=== PATIENT | female | born 1980 | race Caucasian/White ===

== ENCOUNTER 2018-07-27 14:12 | Emergency (ER) | payer BC ==
[~2018-07-27] VITALS: Ht 180.3 cm; Wt 106.6 kg
[~2018-07-27 14:12] MED LIST: ADIPEX-P37.5 M1 PO; CATAPRES0.1 MG PO; ELMIRON100 MG PO; FLAGYL 500500 MG/100 PO; FLAGYL500 MG PO; IMITREX50 MG PO; LEVAQUIN750 MG PO; MOTRIN600 MG PO; NORCO 10/325 TA1 TA1 PO; PERCOCET 5/3251 TA1 PO; PHENERGAN25 M1 PO; SYNTHROID88 MCG PO; TOPAMAX50 MG PO; ZOFRAN8 MG PO
[2018-07-27 14:40] VITALS: Ht 180.3 cm; Wt 106.6 kg
[2018-07-27] MEDS ORDERED: SKELAXIN800 MG PO ×2 (18:40→18:46)
[2018-07-27 19:07] VITALS: BP 137/83
== END 2018-07-27 19:07 | disposition home or self-care (01) ==
LOC: D.ER 14:12
DX: G44.209 Tension-type headache, unspecified, not intractable (principal); E03.9 Hypothyroidism, unspecified; I10 Essential (primary) hypertension; Z87.448 Personal history of other diseases of urinary system

== ENCOUNTER 2019-08-27 16:11 | Observation (INO) | payer BC ==
[~2019-08-27] VITALS: Ht 180.3 cm; Wt 107.6 kg
[~2019-08-27 16:11] MED LIST changes: +SKELAXIN800 MG PO
[2019-08-27] MEDS ORDERED: CYCLOBENZAPRINE10 MG PO (16:50)
[2019-08-27] MEDS ORDERED: HYDROCODON-ACE1 EA10 PO (16:51)
[2019-08-27] MEDS ORDERED: OXYBUTYNIN CHLOR5 M1 PO (16:52)
[2019-08-27] MEDS ORDERED: TOPROL XL25 MG PO (16:52)
--- NOTE | 2019-08-27 17:19 | NUR ---
RECEIVED PT FROM ADMISSIONS. PT IS AAO AND UP AD JAG. RR EVEN AND UNLABORED ON RA. VSS AND WNL. INITIATED NEW PIV 20GA TO THE RIGHT AC X1 ATTEMPT. FLUSHED WITH 10ML NS TO CONFIRM PATENCY. PT TOLERATED WELL. QUICKSTART, MED REQ, AND HISTORY COMPLETE. PT CURRENTLY SITTING UP IN CHAIR. CALL LIGHT W/I REACH. NO S/S OF DISTRESS NOTED. PT DENIES ANY NEEDS. WILL CTM.
[2019-08-27 17:25] VITALS: BP 117/91; Ht 180.3 cm; Wt 107.6 kg
--- NOTE | 2019-08-27 17:35 | NUR ---
ASSESSMENT COMPLETE AAOX4 RESP UNLABORED TENDERNESS NOTED TO MID ABDOMEN STATES PAIN 5/10 WILL CONTINUE TO MONITOR
[2019-08-27 19:04] LABS: BASOPHILS 0.3 % (0-2); EOSINOPHILS 2.1 % (0-7); HEMATOCRIT 41.5 % (36.0-48.0); HEMOGLOBIN 13.7 g/dL (12-16); IMMATURE GRANULOCYTES 0.1 % (0-5); LYMPHOCYTES 23.6 % (15-50); MCH 29.7 pg (26.0-34.0); MCV 89.8 fL (80.0-100.0); MEAN PLATELET VOLUME 9.9 fL (7.4-10.4); MONOCYTES 8.2 % (2-11); NEUTROPHILS 65.7 % (40-80); RBC 4.62 10x6/uL (4.00-5.40); RDW 13.5 % (11.5-14.5); WBC 13.7 10x3/uL (4.8-10.8)
[2019-08-27 19:06] LABS: PLATELET COUNT 270 10x3/uL (130-400)
--- NOTE | 2019-08-27 19:20 | NUR ---
PT CARE ASSUMED. PT AND PTS SPOUSE VISIBLY UPSET CLAIMING THAT PT HAS NOT HAD PAIN MEDICATION. NEW ORDERS FROM PEDRO LUIS SARAH SEE MAR. RR EVEN AND UNLABORED. NO FURTHER NEEDS EXPRESSED AT THIS TIME. CALL LIGHT IN REACH. WILL CTM.
[2019-08-27 19:33] LABS: ALBUMIN 3.9 g/dL (3.4-5.0); ALKALINE PHOSPHATASE 86 U/L (46-116); ALT (SGPT) 22 U/L (10-68); AMYLASE - SERUM 35 U/L (25-115); BILIRUBIN - DIRECT 0.09 mg/dL (0.00-0.30); BILIRUBIN - INDIRECT 0.41 mg/dL (0.00-1.00); CALC OSMOLALITY 282 mosm/kg (275-300); CARBON DIOXIDE 27.7 mmol/L (21.0-32.0); CHLORIDE - SERUM 104 mmol/L (98-107); CREATININE - SERUM 0.9 mg/dL (0.6-1.3); GLUCOSE 93 mg/dL (74-106); LIPASE 90 U/L (73-393); POTASSIUM - SERUM 4.2 mmol/L (3.5-5.1); PROTEIN - SERUM 7.7 g/dL (6.4-8.2); SODIUM 141 mmol/L (136-145); TROPONIN-I < 0.017 ng/mL (0.000-0.060); UREA NITROGEN 18 mg/dL (7-18); eGFR NON AFRICAN AMERICAN 75 mL/min (90-120)
[2019-08-27 20:02] VITALS: BP 127/80
[2019-08-27 23:36] VITALS: BP 105/67
[2019-08-27 23:41] LABS: APPEARANCE CLEAR (CLEAR); BILIRUBIN NEGATIVE (NEGATIVE); COLOR YELLOW (YELLOW); GLUCOSE NEGATIVE (NEGATIVE); KETONE NEGATIVE (NEGATIVE); NITRITE NEGATIVE (NEGATIVE); PROTEIN NEGATIVE (NEGATIVE); SPECIFIC GRAVITY 1.015 (1.005-1.020); UROBILINOGEN NORMAL (NORMAL)
[2019-08-28 07:50] LABS: APTT 34.2 SECONDS (22.8-39.4); INR 1.05 (0.85-1.17); PROTIME 13.3 SECONDS (11.6-15.0)
[2019-08-28 07:52] LABS: BASOPHILS 0.2 % (0-2); EOSINOPHILS 1.9 % (0-7); HEMATOCRIT 40.1 % (36.0-48.0); HEMOGLOBIN 12.8 g/dL (12-16); IMMATURE GRANULOCYTES 0.1 % (0-5); LYMPHOCYTES 19.5 % (15-50); MCH 29.3 pg (26.0-34.0); MCHC 31.9 g/dL (31.0-37.0); MCV 91.8 fL (80.0-100.0); MEAN PLATELET VOLUME 9.6 fL (7.4-10.4); MONOCYTES 7.2 % (2-11); NEUTROPHILS 71.1 % (40-80); PLATELET COUNT 248 10x3/uL (130-400); RBC 4.37 10x6/uL (4.00-5.40); RDW 13.4 % (11.5-14.5); WBC 10.7 10x3/uL (4.8-10.8)
[2019-08-28 07:56] LABS: ANION GAP 11.1 mmol/L (8-16); CALCIUM 8.5 mg/dL (8.5-10.1); CARBON DIOXIDE 25.2 mmol/L (21.0-32.0); MAGNESIUM - SERUM 1.9 mg/dL (1.8-2.4); PHOSPHOROUS 3.4 mg/dL (2.5-4.9); POTASSIUM - SERUM 4.3 mmol/L (3.5-5.1)
[2019-08-28 08:00] VITALS: BP 118/66
[2019-08-28 12:00] VITALS: BP 119/79
--- NOTE | 2019-08-28 12:45 | NUR ---
CALLED YAMILETH SARAH [employer] ERECTOR FOR DR SALGUERO AND LORIE, AND REPORTED THAT THE CT RESULTS ARE UP. THEN I TRIED TO CALL DR MELO, BUT HE IS NOT [employer] AT THIS TIME. HE IS PUTTING ORDERS IN ON THE PATIENT AT THIS TIME THOUGH. PAGED [employer] E[employer]OR TO REPORT THAT THE CT RESULTS ARE UP.
--- NOTE | 2019-08-28 14:42 | NUR ---
PATIENT IS RESTING ON HER BACK IN BED AT THIS TIME. REPORTS THAT SHE HAS REDUCED PAIN IN HER ABDOMEN. FAMILY AT BEDSIDE. SHE DENIES ANY NEEDS AT THIS TIME.
[2019-08-28 16:00] VITALS: BP 120/78
[2019-08-28 20:35] VITALS: BP 110/76
--- NOTE | 2019-08-28 23:29 | NUR ---
INITIAL ROUNDS COMPLETED AT 1915 HRS. NO DISTRESS NOTED. SPOUSE AT BEDSIDE. ASSESSMENT COMPLETED AT 2015 HRS. VSS. ALERT AND ORIENTED TO PERSON,PLACE AND TIME. DOTY. IV TO RAC WITH NS AAT 125CC/HR. IV PATENT. LUNGS CTA. ABD SOFT AND TENDER TO TOUCH. HYPOACTIVE BS NOTED. PT UP IN SHOWER AT 2044 HRS. BED LINENS CHANGED PER SPOUSE. PM MEDS GIVEN. MORPHINE 4MG, ZOFRAN 4MG GIVEN SIVP FOR C/O PAIN AND NAUSEA AT 2232 HRS. PT CURRENTLY RESTING WITH EYES CLOSED. RESP EVEN AND REGULAR. SR UP X2,CALL LIGHT WITHIN REACH.
[2019-08-28 23:52] VITALS: BP 108/69
--- NOTE | 2019-08-29 00:36 | NUR ---
PT RESTING WITH EYES CLOSED. RESP EVEN AND REGULAR. SR UP X2, CALL LIGHT WITHIN REACH.
--- NOTE | 2019-08-29 02:26 | NUR ---
PT RESTING WITH EYES CLOSED. RESP EVEN AND REGULAR. SR UP X2,CALL LIGHT WITHIN REACH.
[2019-08-29 04:02] VITALS: BP 102/56
--- NOTE | 2019-08-29 04:20 | NUR ---
IMMITREX 100MG PO GIVEN FOR C/O MIGRAINE ARAUZ. CALL LIGHT WITHIN REACH.
[2019-08-29 04:55] LABS: BASOPHILS 0.2 % (0-2); EOSINOPHILS 1.7 % (0-7); HEMATOCRIT 37.6 % (36.0-48.0); HEMOGLOBIN 11.9 g/dL (12-16); IMMATURE GRANULOCYTES 0.3 % (0-5); LYMPHOCYTES 23.1 % (15-50); MCH 29.1 pg (26.0-34.0); MCHC 31.6 g/dL (31.0-37.0); MCV 91.9 fL (80.0-100.0); MEAN PLATELET VOLUME 9.8 fL (7.4-10.4); NEUTROPHILS 64.7 % (40-80); PLATELET COUNT 249 10x3/uL (130-400); RBC 4.09 10x6/uL (4.00-5.40); RDW 13.6 % (11.5-14.5); WBC 10.3 10x3/uL (4.8-10.8)
[2019-08-29 05:06] LABS: ANION GAP 12.8 mmol/L (8-16); CALCIUM 8.1 mg/dL (8.5-10.1); CARBON DIOXIDE 24.2 mmol/L (21.0-32.0)
--- NOTE | 2019-08-29 07:18 | NUR ---
VSS THROUGHOUT NIGHT. PT STATED IMMITREX ALLEVIATED MIGRAINE. NEEDS MET; WILL CONTINUE TO MONITOR.
[2019-08-29 08:47] VITALS: BP 109/69
[2019-08-29] MEDS ORDERED: LEVAQUIN750 MG PO (10:07)
[2019-08-29] MEDS ORDERED: FLAGYL500 MG PO (10:07)
[2019-08-29] MEDS ORDERED: PROTONIX40 MG PO (10:08)
[2019-08-29] MEDS ORDERED: CARAFATE1 G PO (10:08)
[2019-08-29 12:06] VITALS: BP 140/80
[2019-08-29 13:04] VITALS: BP 126/71
--- NOTE | 2019-08-29 14:30 | MORECARE ---
CASE MANAGEMENT DISCHARGE SUMMARY PATIENT: FIORDALIZA HUYNH UNIT: [id number] ADM DATE: 08/27/19 AGE: 39 : 84 SEX: F ROOM/BED: D.2132 AUTHOR: ALLEN KU PHYSICIAN: REFERRING PHYSICIAN: MARYLU HERNANDEZ MD DATE OF SERVICE: 08/29/19 Discharge Plan Patient Name: FIORDALIZA HUYNH Facility: [facility]:[place] : 1980 Planned Disposition: Anticipated Discharge Date: 08/29/19 Discharge Date: 08/29/2019 Expected LOS: 2 Initial Reviewer: [id number] Initial Review Date: 08/27/2019 Generated: 08/29/19 3:29 pm External Providers External Provider: OTHER-OTHER Next Contact Date: Service Request Date: Service Type: Resolution: Reviewer: Comments: Patient Name: FIORDALIZA HUYNH Page [phone] at 1430 All edits/amendments must be made on the electronic document DICTATION DATE: 08/29/191428 KILN REPAIRER: DM 08/29/191428 RPT#: [id number] DC DATE:08/29/19 STATUS: DIS IN [facility] [address] [place] [address] END OF REPORT
--- NOTE | 2019-08-29 15:06 | MORECARE ---
CASE MANAGEMENT DISCHARGE SUMMARY PATIENT: FIORDALIZA HUYNH UNIT: [id number] ADM DATE: 08/27/19 AGE: 39 : 84 SEX: F ROOM/BED: D.2132 AUTHOR: ALLEN KU PHYSICIAN: REFERRING PHYSICIAN: MARYLU HERNANDEZ MD DATE OF SERVICE: 08/29/19 Discharge Plan Patient Name: FIORDALIZA HUYNH Facility: [facility]:[place] : 1980 Planned Disposition: Anticipated Discharge Date: 08/29/19 Discharge Date: 08/29/2019 Expected LOS: 2 Initial Reviewer: [email or web address] Initial Review Date: 08/27/2019 Generated: 08/29/19 4:06 pm Last DP export: 08/29/19 1:30 Patient Name: FIORDALIZA HUYNH Page [phone] at 1506 All edits/amendments must be made on the electronic document DICTATION DATE: 08/29/19 1506 ASSOCIATE ACCOUNT DIRECTOR: GORDO 08/29/19 1506 RPT#: [id number] DC DATE:08/29/19 STATUS: DIS IN [facility] [address] [place] [address] END OF REPORT
== END 2019-08-29 13:53 | disposition home or self-care (01) ==
LOC: D.M2 16:11 → OBSVTIME 16:11 → D.M2 08-29 13:53
PROVIDERS: Internal Medicine Nephrology; ADMIT Family Medicine; ATTEND Family Medicine
DX: K29.70 Gastritis, unspecified, without bleeding (principal); I10 Essential (primary) hypertension; G89.29 Other chronic pain; M54.9 Dorsalgia, unspecified; E03.9 Hypothyroidism, unspecified; G43.909 Migraine, unspecified, not intractable, without status migrainosus; N30.20 Other chronic cystitis without hematuria